=== PATIENT | female | born 2000 ===

== ENCOUNTER 2024-04-17 07:35 | Inpatient (IN) ==
--- OUTSIDE RECORDS SUMMARY | 2024-04-17 07:40 | External Medical Summary | Summary of Care ---
Author Name Unknown Organization [facility] Address [address] [facility] [place] [address] Phone [phone] Care Team Providers Care Watershed Engineer Name Role Phone Unavailable Primary Care Provider Unavailabl e Reason for Visit * Reason Comments Return Visit Encounter Details Date Type Department Care Team (Late st Contact Info) Description 03/26/2024 11:45 AM EDT Office Visit Gynecology/Obstetric s [address] [place] [address] Nory Araya CRNP [address] [place] [address] Encounter for supervision of normal first in third trimester*; Adjustment disorder with mixed anxiety and depressed mood; Rh negative status during in third trimester Allergies Active Allergy Reactions Criticality Noted Date Comments Amoxicillin 01/26/2024 documented as of this encounter (statuses as of 03/26/2024) Medications Medication Sig Dispensed Refills Start Date End Date Status 28-0.8 MG Oral Tablet Take by mouth. Active Sertraline HCl 50 MG Oral Tablet (Zoloft) Take 1 Tablet by mouth in the morning. Active documented as of this encounter (statuses as of 03/26/2024) Active Problems Problem Noted Date Diagnosed Date Rh negative status during 02/21/2024 Overview: O- bloodtype. NOB labs drawn at 32w. NEEDS RHOGAM Encounter for supervision of normal first in third trimester 02/13/2024 Overview: Transfer from [facility] at 31w. Labs not available for review, ordered 02/13/2024 Adjustment disorder with mixed anxiety and depre ssed mood 02/13/2024 Overview: On zoloft, feeling well Estimated Date of Delivery Comme nts Yes 04/16/2024 Based on Ultraso und documented as of this encounter (statuses as of 03/26/2024) Social History Tobacco Use Types Packs/Day Years Used Date Smoking Tobacco: Never Smokeless Tobacco: Never Alcohol Use Standard Drinks/Week Comments Not Currently 0 (1 standard drink = 0.6 oz pur e alcohol) Hunger Vital Sign Answer Date Recorded Within the past 12 months, y ou worried that your food would run out before you got the money to buy more. Never true 01/24/20 24 Within the past 12 months, t he food you bought just didn't last and you didn't have money to get more. Never true 01/24/2024 Childcare Answer Date Recorded Do you feel overwhelmed with taking care of a child, family member or friend? No 01/24/2024 Does your family need help f inding childcare? (Household - for ages 0-17 years) Not on file 01/24/2024 Clothing Answer Date Recorded Have you been unable to get clothing when it was really needed? No 01/24/2024 Is your family able to get c lothes or diapers when needed? (Household - for ages 0-17 years) Not on file 01/24/2024 Personal Safety Answer Date Recorded Do you feel unsafe or have concerns for your saf ety? No 01/24/2024 Do you have concerns for you r family's safety? (Household - for ages 0-17 years) Not on file 01/24/2024 Utilities Answer Date Recorded Do you have trouble paying y our heating, water, or electric bill? No 01/24/2024 Is your family able to pay t he heat, water, or electric bill? (Household - for ages 0-17 years) Not on file 01/24/2024 Does your family have access to good internet? (Household - for ages 0-17 years) Not on file 01/24/2024 Employment Status Answer Date Recorded Are you unemployed or without regular income? No 01/24/2024 Does the household have a re gular source of income? (Household - for ages 0-17 years) Not on file 01/24/2024 Social Connections Answer Date Recorded How often do you feel lonely or isolated from those around you? Sometimes 01/24/2024 Financial Resource Strain Answer Date R ecorded Do you have any trouble payi ng for your medications, or do you think you might in the future? No 01/24/2024 Does your family have troubl e paying for medicine? (Household - for ages 0-17 years) Not on file 01/24/2024 Transportation Needs Answer Date Record ed READ ONLY Do you have troubl e getting a ride to medical visits or work? Never True 01/24/2024 Does your family have a hard time getting a ride to doctors visits? (Household - for ages 0-17 years) Not on file 01/24/2024 Has lack of transportation k ept you from medical appointments, meetings, work, or from getting things needed for daily living? Check all that apply. (Adult - for ages 18 years and over) Not on file 01/24/2024 Do you (or your family) have trouble finding or paying for a ride (transportation)? (Household - for ages 0-17 years) Not on file 01/24/2024 Housing Stability Answer Date Recorded Do you currently live in a s helter or have no steady place to sleep at night? No 01/24/2024 READ ONLY Do you think you a re at risk of becoming homeless? No 01/24/2024 Does your family worry about paying for your home or becoming homeless? (Household - for ages 0-17 years) Not on file 0 01/24/2024 Are you homeless or worried that you might be in the future? (Adult - for ages 18 years and over) Not on file Are you (or your family) deb eless or worried that you might be in the future? (Household - for ages 0-17 years) Not on file Food Insecurity Answer Date Recorded Do you need food for this week? No 01/24/2024 Are you able to get enough f ood for your family? (Household - for ages 0-17 years) Not on file 01/24/2024 Does your family need food t his week? (Household - for ages 0-17 years) Not on file 01/24/2024 Do you always have enough fo od for your family? (Household - for ages 0-17 years) Not on file 01/24/2024 Estimated Date of Delivery Comme nts Yes 04/16/2024 Based on Ultraso und Sex and Gender Information Value Date Recorded Sex Assigned at Female 01/24/2024 2:56 PM EDT Gender Identity Female 01/24/2024 2:56 PM EDT Sexual Orientation Straight 01/24/2024 2: 56 PM EDT Job Start Date Occupation Industry Not on file Not on file Not on file documented as of this encounter Last Filed Vital Signs Vital Sign Reading Time Taken Comments Blood Pressure 104/66 03/26/2024 11:49 AM EDT Pulse - - Temperature - - Respiratory Rate - - Oxygen Saturation - - Inhaled Oxygen Concentration - - Weight 87.1 kg (192 lb) 03/26/2024 11:49 AM EDT Height - - Body Mass Index 36.28 03/19/2024 9:50 AM EDT documented in this encounter Progress Notes * Nory Araya CRNP - 03/26/2024 11:53 AM EDT 37w Feeling ready to be done being . She denies any questions or concerns. Reports her mood is good, has appt tomorrow with psychiatrist. Denies need for intervention at thistime. Baby is active. Denies contractions, bleeding, LOF. CHINTAN Kebede * Norma Richards LPN - 03/26/2024 11:50 AM EDT 37w0d Denies vaginal bleeding/rom + movement No new concerns documented in this encounter Plan of Treatment Upcoming Encounters Date Type Department Care Team (Late st Contact Info) Description 04/02/2024 11:30 AM EDT Office Visit Gynecology/Obstetrics [address] [place] [address] Nory Araya CRNP [address] [place] [address] Health Maintenance Due Date Last Done Comments Depression Screening 2010 HPV (Gardasil) Vaccine (1 - 3-dose series) 2013 DTaP,Tdap,and Td Vaccines (1 - Tdap) 2017 Hepatitis B Vaccine (1 of 3 - 19+ 3-dose series) 2017 Pap Smear 2019 COVID-19 Vaccine ( - 2022-2 4 season) 2023 Influenza Vaccine (FLU shot) (#1) 2024 MENINGOCOCCAL (MENACTRA/MENVEO) Aged Out No longer eligible based on patient's age to complete this topic Pneumococcal Vaccine: Pediat rics (0 to 5 Years) and At-Risk Patients (6 to 64 Years) Aged Out No longer eligible b ased on patient's age to complete this topic documented as of this encounter Medical Devices Not on filedocumented as of this encounter Visit Diagnoses Diagnosis Encounter for supervision of normal first in third trimester- Primary Supervision of normal first Adjustment disorder with mixed anxiety and depressed mood Rh negative status during in third trimester documented in this encounter
--- OUTSIDE RECORDS SUMMARY | 2024-04-17 07:40 | External Medical Summary | Summary of Care ---
Author Name Unknown Organization [facility] Address [address] [facility] [place] [address] Phone [phone] Care Team Providers Care Machinist Job Setter Name Role Phone Unavailable Primary Care Provider Unavailabl e Reason for Visit * Reason Comments Return Visit Encounter Details Date Type Department Care Team (Late st Contact Info) Description 03/19/2024 9:45 AM EDT Office Visit Gynecology/Obstetric s [address] [place] [address] Nory Araya CRNP [address] [place] [address] Encounter for supervision of normal first in third trimester*; Adjustment disorder with mixed anxiety and depressed mood; Rh negative status during in third trimester Allergies Active Allergy Reactions Criticality Noted Date Comments Amoxicillin 01/26/2024 documented as of this encounter (statuses as of 03/19/2024) Medications Medication Sig Dispensed Refills Start Date End Date Status 28-0.8 MG Oral Tablet Take by mouth. Active Sertraline HCl 50 MG Oral Tablet (Zoloft) Take 1 Tablet by mouth in the morning. Active documented as of this encounter (statuses as of 03/19/2024) Active Problems Problem Noted Date Diagnosed Date Rh negative status during 02/21/2024 Overview: O- bloodtype. NOB labs drawn at 32w. NEEDS RHOGAM Encounter for supervision of normal first in third trimester 02/13/2024 Overview: Transfer from [facility] at 31w. Labs not available for review, ordered 02/13/2024 Adjustment disorder with mixed anxiety and depre ssed mood 02/13/2024 Overview: On zoloft, feeling well Estimated Date of Delivery Comme nts Yes 04/16/2024 Based on Ultraso und documented as of this encounter (statuses as of 03/19/2024) Social History Tobacco Use Types Packs/Day Years [...] Sign Reading Time Taken Comments Blood Pressure 122/70 03/19/2024 9:50 AM EDT Pulse - - Temperature - - Respiratory Rate - - Oxygen Saturation - - Inhaled Oxygen Concentration - - Weight 85.7 kg (189 lb) 03/19/2024 9:50 AM EDT Height 154.9 cm (5' 1") 03/19/2024 9:50 AM EDT Body Mass Index 35.71 03/19/2024 9:50 AM EDT documented in this encounter Progress Notes * Nory Araya CRNP - 03/19/2024 11:27 AM EDT 36w Pt sent myG messages last week with feelings of anxiety. Crying a lot, struggling to leave her house. Had stopped her Zoloft d/t nausea from it, at the advice of her psychiatrist. She states today that she is starting to feel better. She has an appt next week again, but states they are hopeful to not start on any other meds until . We discussed concerns of PPD/anxiety, and that most meds are safe in . She reports that baby is active. Denies bleeding, contractions, LOF. Uncertain lie of baby, will obtain u/s for position check. CHINTAN Kebede * Anita Jewell LPN - 03/19/2024 9:50 AM EDT 36w0d Is following with talkiatry and was not prescribed anything doing better with moods Needs GBS today documented in this encounter Plan of Treatment Upcoming Encounters Date Type Department Care Team (Late st Contact Info) Description 03/26/2024 10:30 AM EDT Imaging Radiology [address] [place] [address] 03/26/2024 11:45 AM EDT Office Visit Gynecology/Obstetrics [address] [place] [address] Nory Araya CRNP [address] [place] [address] Pending Results Name Type Priority Associated Diagnoses Date /Time GROUP B STREP CULTURE/PCR Lab Routine Encounter for supervision of normal first in third trimester 03/19/2024 10:16 AM EDT Scheduled Orders Name Type Priority Associated Diagnoses Orde r Schedule GROUP B STREP CULTURE/PCR Lab Routine Encounter for supervision of normal first in third trimester Expected: 03/19/2024, Expires: 03/19/2025 US PREG LIMITED 1 OR MORE FETUSES Medical Imaging Routine Encounter for supervision of normal first in third trimester Expected: 03/19/2024 (Approximate), Expires: 04/19/2025 Health Maintenance Due Date Last Done Comments [...]
--- OUTSIDE RECORDS SUMMARY | 2024-04-17 07:40 | External Medical Summary | Summary of Care ---
Author Name Unknown Organization [facility] Address [address] [facility] [place] [address] Phone [phone] Care Team Providers Care Waist Cutter Name Role Phone Unavailable Primary Care Provider Unavailabl e Reason for Visit * Reason Comments Return Visit Encounter Details Date Type Department Care Team (Late st Contact Info) Description 04/02/2024 11:30 AM EDT Office Visit Gynecology/Obstetric s [address] [place] [address] Nory Araya CRNP [address] [place] [address] Encounter for supervision of normal first in third trimester*; Adjustment disorder with mixed anxiety and depressed mood; Rh negative status during in third trimester Allergies Active Allergy Reactions Criticality Noted Date Comments Amoxicillin 01/26/2024 documented as of this encounter (statuses as of 04/02/2024) Medications Medication Sig Dispensed Refills Start Date End Date Status 28-0.8 MG Oral Tablet Take by mouth. Active Sertraline HCl 50 MG Oral Tablet (Zoloft) Take 1 Tablet by mouth in the morning. Active Promethazine HCl 25 MG Oral Tablet (Phenergan) Take 1 Tablet by mouth every 6 hours as needed for Nausea. 30 Tablet 1 04/02/2024 Active documented as of this encounter (statuses as of 04/02/2024) Active Problems Problem Noted Date Diagnosed Date Rh negative status during 02/21/2024 Overview: O- bloodtype. NOB labs drawn at 32w. NEEDS RHOGAM Encounter for supervision of normal first in third trimester 02/13/2024 Overview: Transfer from [facility] at 31w. Labs not available for review, ordered 02/13/2024 Adjustment disorder with mixed anxiety and depre ssed mood 02/13/2024 Overview: On zoloft, feeling well Estimated Date of Delivery Comme nts Yes 04/16/2024 Based on Ultraso und documented as of this encounter (statuses as of 04/02/2024) Social History Tobacco Use Types Packs/Day Years [...] Sign Reading Time Taken Comments Blood Pressure 116/64 04/02/2024 11:31 AM EDT Pulse - - Temperature - - Respiratory Rate - - Oxygen Saturation - - Inhaled Oxygen Concentration - - Weight 88.5 kg (195 lb) 04/02/2024 11:31 AM EDT Height 154.9 cm (5' 1") 04/02/2024 11:31 AM EDT Body Mass Index 36.84 04/02/2024 11:31 AM EDT documented in this encounter Progress Notes * Nory Araya CRNP - 04/02/2024 11:49 AM EDT 38w Met with psych and was restarted on Zoloft, despite this causing nausea. Zofran, Unisom, B6 doesn'thelp. Rx for phenergan sent to pharmacy. No other concerns today. Baby is active. No contractions, bleeding, LOF. IOL scheduled for 04/17/24. CHINTAN Kebede * Anita Jewell LPN - 04/02/2024 11:33 AM EDT 38w0d Back on zoloft still feeling nausea with this Last time in zoloft, zofran did not help documented in this encounter Nursing Notes * Anita Jewell LPN - 04/02/2024 11:32 AM EDT 38w0d documented in this encounter Plan of Treatment Upcoming Encounters Date Type Department Care Team (Late st Contact Info) Description 04/03/2024 10:00 AM EDT Office Visit Gynecology/Obstetrics [facility] [address] [place] [address] Nory Araya CRNP [address] [place] [address] Health Maintenance Due Date Last Done Comments [...]
--- OUTSIDE RECORDS SUMMARY | 2024-04-17 07:40 | External Medical Summary | Summary of Care ---
Author Name Unknown Organization [facility] Address [address] [facility] [place] [address] Phone [phone] Care Team Providers Care Photogrammetrist Name Role Phone Unavailable Primary Care Provider Unavailabl e Reason for Visit * Reason Comments Return Visit Encounter Details Date Type Department Care Team (Late st Contact Info) Description 04/09/2024 1:30 PM EDT Office Visit Gynecology/Obstetric s Osman Mustafa [address] [place] [address] Nory Araya CRNP [address] [place] [address] Encounter for supervision of normal first in third trimester*; Adjustment disorder with mixed anxiety and depressed mood; Rh negative status during in third trimester Allergies Active Allergy Reactions Criticality Noted Date Comments Amoxicillin 01/26/2024 documented as of this encounter (statuses as of 04/09/2024) Medications Medication Sig Dispensed Refills Start Date [...] as of this encounter (statuses as of 04/09/2024) Active Problems Problem Noted Date Diagnosed Date Rh negative status during 02/21/2024 Overview: O- bloodtype. NOB labs drawn at 32w. NEEDS RHOGAM Encounter for supervision of normal first in third trimester 02/13/2024 Overview: Transfer from [facility] at 31w. Labs not available for review, ordered 02/13/2024 Adjustment disorder with mixed anxiety and depre ssed mood 02/13/2024 Overview: On zoloft, feeling well Estimated Date of Delivery Comme nts Yes 04/16/2024 Based on Ultraso und documented as of this encounter (statuses as of 04/09/2024) Social History Tobacco Use Types Packs/Day Years [...] Sign Reading Time Taken Comments Blood Pressure 122/74 04/09/2024 1:06 PM EDT Pulse - - Temperature - - Respiratory Rate - - Oxygen Saturation - - Inhaled Oxygen Concentration - - Weight 89.4 kg (197 lb) 04/09/2024 1:06 PM EDT Height 154.9 cm (5' 1") 04/09/2024 1:06 PM EDT Body Mass Index 37.22 04/09/2024 1:06 PM EDT documented in this encounter Progress Notes * Nory Araya CRNP - 04/09/2024 1:40 PM EDT 39w Anxious about delivery, specifically about IV insertion. She has no other concerns. [place] score of 14, but reports mood as stable. Taking zofran as directed. Taking phenergan for nausea, which is helping very well. Hasn't vomited in a week. Baby is very active. Denies contractions, bleeding, LOF. Has IOL 04/17. CHINTAN Kebede documented in this encounter Nursing Notes * Aaliyah Jay LPN - 04/09/2024 1:17 PM EDT 39w0d Denies concerns IOL scheduled 04/17 documented in this encounter Plan of Treatment Health Maintenance Due Date Last Done Comments [...]
--- OUTSIDE RECORDS SUMMARY | 2024-04-17 07:40 | External Medical Summary | Summary of Care ---
Author Name Unknown Organization [facility] Address [address] [facility] [place] [address] Phone [phone] Care Team Providers Care Photoresist Contact Printer Name Role Phone Unavailable Primary Care Provider Unavailabl e Reason for Visit * Reason Comments Blood Pressure Check Encounter Details Date Type Department Care Team (Late st Contact Info) Description 04/10/2024 10:00 AM EDT Nurse Only Gynecology/Obstetrics [facility] [address] [facility] [place] [address] Gw, Nurse Obgyn Injection [address] [facility] [place] [address] Blood Pressure Check Allergies Active Allergy Reactions Criticality Noted Date Comments Amoxicillin 01/26/2024 documented as of this encounter (statuses as of 04/10/2024) Medications Medication Sig Dispensed Refills Start Date [...] as of this encounter (statuses as of 04/10/2024) Active Problems Problem Noted Date Diagnosed Date Rh negative status during 02/21/2024 Overview: O- bloodtype. NOB labs drawn at 32w. NEEDS RHOGAM Encounter for supervision of normal first in third trimester 02/13/2024 Overview: Transfer from [facility] at 31w. Labs not available for review, ordered 02/13/2024 Adjustment disorder with mixed anxiety and depre ssed mood 02/13/2024 Overview: On zoloft, feeling well Estimated Date of Delivery Comme nts Yes 04/16/2024 Based on Ultraso und documented as of this encounter (statuses as of 04/10/2024) Social History Tobacco Use Types Packs/Day Years [...] money to get more. Never true 01/24/2024 [place] Depression Scale Answer Date Recorded [place] Depression Scale Total 14 04/09/2024 The thought of harming myself has occurred to me . Never 04/09/2024 Childcare Answer Date Recorded Do you feel [...] Sign Reading Time Taken Comments Blood Pressure 124/78 04/10/2024 10:40 AM EDT Pulse - - Temperature - - Respiratory Rate - - Oxygen Saturation - - Inhaled Oxygen Concentration - - Weight - - Height - - Body Mass Index - - documented in this encounter Nursing Notes * Anita Jewell LPN - 04/10/2024 10:33 AM EDT Pt came in for a bp check and urine dip today due to LE swelling Pt denies any VB, LOF ctxs and baby is moving well. Pt said she has had a STAPLES for 1 week and tylenol doesn't help much. PT states she drinks maybe 60-80 ozs a day of liquid iv. Pt urine is dark in color had trace protein and ketones. Pt BP was 124/78 I let pt know per Nory pt is dehydrated and she needs to increase her water intake to close to 120 ozs. Pt said she can't due that due to the medications she takes and it makes her feel nauseous. I told pt she needs to try and drink more water to help with the swelling and her STAPLES's. I let pt know to call us if STAPLES continue or become worse along with any new symptoms. Pt verbalized understanding. documented in this encounter Plan of Treatment Health Maintenance Due Date Last Done Comments Depression Screening 2010 HPV (Gardasil) Vaccine (1 - 3-dose series) 2013 DTap/Tdap Vaccines (1 - Tdap) 2017 Hepatitis B [...] and depressed mood Rh negative status during Rhesus isoimmunization unspecified as to episode of care in documented in this encounter
--- OUTSIDE RECORDS SUMMARY | 2024-04-17 07:40 | External Medical Summary | Summary of Care ---
Author Name Unknown Organization [facility] Address [address] [place] [address] Phone [phone] Care Team Providers Care Motion Picture Actor Name Role Phone Unavailable Primary Care Provider Unavailabl e Reason for Visit * Reason Onset Date Comments MyCode Nonconsent - Not interested at this time 03/19/2024 Encounter Details Date Type Department Care Team (Late st Contact Info) Description 03/19/2024 Orders Only Outcomes Research Department [address] [place] [address] Irish Cao CHRA MyCode Nonconsent Documentation Allergies Active Allergy Reactions Criticality Noted Date [...] in third trimester 02/13/2024 Overview: Transfer from [facility] at 31w. Labs not available for [...] on file documented as of this encounter Progress Notes * Irish Cao CHRA - 03/19/2024 9:31 AM EDT [place] Nonconsent Documentation Bia Lima was approached in the clinic regarding participation in the MyCode Project and did not consent. documented in this encounter Plan of Treatment [...]
--- OUTSIDE RECORDS SUMMARY | 2024-04-17 07:41 | External Medical Summary | Summary of Care ---
Author Name Unknown Organization [facility] Address [address] [facility] [place] [address] Phone [phone] Care Team Providers Care Hourly Sign Language Interpreter Name Role Phone Unavailable Primary Care Provider Unavailabl e Reason for Visit * Reason Comments New Visit Encounter Details Date Type Department Care Team (Late st Contact Info) Description 02/13/2024 3:00 PM EDT Office Visit Gynecology/Obstetric s [address] [place] [address] Nory Araya CRNP [address] [place] [address] Encounter for supervision of normal first in third trimester*; Uterine size date discrepancy Allergies Active Allergy Reactions Criticality Noted Date Comments Amoxicillin 01/26/2024 documented as of this encounter (statuses as of 02/13/2024) Medications Medication Sig Dispensed Refills Start Date End Date Status 28-0.8 MG Oral Tablet Take by mouth. Active Sertraline HCl 50 MG Oral Tablet (Zoloft) Take 1 Tablet by mouth in the morning. Active documented as of this encounter (statuses as of 02/13/2024) Active Problems Problem Noted Date Diagnosed Date Encounter for supervision of normal first in third trimester 02/13/2024 Overview: Transfer from [facility] at 31w. Labs not available for review, ordered 02/13/2024 Adjustment disorder with mixed anxiety and depre ssed mood 02/13/2024 Overview: On zoloft, feeling well Estimated Date of Delivery Comme nts Yes 04/16/2024 Based on Ultraso und documented as of this encounter (statuses as of 02/13/2024) Social History Tobacco Use Types Packs/Day Years [...] Sign Reading Time Taken Comments Blood Pressure 114/68 02/13/2024 2:50 PM EDT Pulse - - Temperature - - Respiratory Rate - - Oxygen Saturation - - Inhaled Oxygen Concentration - - Weight 85.7 kg (189 lb) 02/13/2024 2:50 PM EDT Height 154.9 cm (5' 1") 02/13/2024 2:50 PM EDT Body Mass Index 35.71 02/13/2024 2:50 PM EDT documented in this encounter Progress Notes * Nory Araya CRNP - 02/13/2024 3:15 PM EDT HPI: Bia Lima is a 24 year old year old female here for NOB visit. 31w0d . EDC 04/16/24. Transferring care from Dr. Laird's office. No labs seen in chart. Reviewed PMH, PSH, social hx, and family hx with pt. History of anxiety and depression, on zoloft. Feeling well on this. Had been on Lamictal prior, feels great on Zoloft. Discussed genetic screening tests, did not do any. Taking PNV. Past Medical History: Diagnosis Date Anxiety Depression Past Surgical History: Procedure Laterality Date MI TONSILLECTOMY PRIMARY/SECONDARY LESS THAN AGE 10 Current outpatient prescriptions Current Outpatient Medications Medication Sig Dispense Refill 28-0.8 MG Oral Tablet Take by mouth. Sertraline HCl 50 MG Oral Tablet (Zoloft) Take 1 Tablet by mouth in the morning. No current facility-administered medications for this visit. 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 (Adult - for ages 18 years and over): No Does your family have trouble paying for medicine? (Household - for ages 0-17 years): Not on file Food Insecurity: No Food Insecurity (01/24/2024) Food Insecurity Do you need food for this week? (Adult - for ages 18 years and over): No Are you able to get enough food for your family? (Household - for ages 0-17 years): Not on file Does your family need food this week? (Household - for ages 0-17 years): Not on file Do you always have enough food for your family? (Household - for ages 0-17 years): Not on file Transportation Needs: No Transportation Needs (01/24/2024) Transportation Needs Do you have trouble getting a ride to medical visits or work? (Adult - for ages 18 years and over):Never True Does your family have a hard time getting a ride to doctors visits? (Household - for ages 0-17 years): Not on file Has lack of transportation kept you from medical appointments, meetings, work, or from getting things needed for daily living? Check all that apply. (Adult - for ages 18 years and over): Not on file Do you (or your family) have trouble finding or paying for a ride (transportation)? (Household - for ages 0-17 years): Not on file Social Connections: Socially Integrated (01/24/2024) Social Connections How often do you feel lonely or isolated from those around you? (Adult - for ages 18 years and over): Sometimes Housing Stability: Low Risk (01/24/2024) Housing Stability Do you currently live in a jail or have no steady place to sleep at night? (Adult - for ages 18 years and over): No Do you think you are at risk of becoming homeless? (Adult - for ages 18 years and over): No Does your family worry about paying for your home or becoming homeless? (Household - for ages 0-17 years): Not on file Are you homeless or worried that you might be in the future? (Adult - for ages 18 years and over): Not on file Are you (or your family) homeless or worried that you might be in the future? (Household - for ages0-17 years): Not on file Family History No family history on file. Obstetric History OB History Para Term AB Living 1 SAB IAB Ectopic Multiple Live Births # Outcome Date GA Lbr Elbert/2nd Weight Sex Type Anes PTL Lv 1 Current PHYSICAL EXAM: See physical IMPRESSION: Encounter for supervision of normal first in third trimester (Primary) - 50-G GESTATIONAL GLUCOSE, 1 HOUR; Future; Expected date: 02/13/2024 - CBC WITH WBC DIFFERENTIAL AND ANEMIA REFLEX WORKUP; Future; Expected date: 02/13/2024 - SYPHILIS ANTIBODY SCREEN WITH REFLEX TO RPR; Future; Expected date: 02/13/2024 - TYPE AND SCREEN; Future; Expected date: 02/13/2024 - RUBELLA IGG ANTIBODY; Future; Expected date: 02/13/2024 - HEPATITIS B SURFACE ANTIGEN; Future; Expected date: 02/13/2024 - HIV ANTIGEN & ANTIBODY SCREEN W/ CONFIRMATION; Future; Expected date: 02/13/2024 - HEPATITIS C ANTIBODY SCREEN WITH PROGRESSION TO HEPATITIS C RNA QUANTITATIVE; Future; Expected date: 02/13/2024 Uterine size date discrepancy - US PREG FOLLOW-UP EACH FETUS; Future; Expected date: 02/13/2024 Follow Up: Return in about 2 weeks (around 02/27/2024) for angelique. | For: angelique | Check-out note: Needs Glucola JILL Schedule growth u/s. Can be with next visit, or sooner CHINTAN Kebede * Anita Jewell LPN - 02/13/2024 2:50 PM EDT 31w0d documented in this encounter Plan of Treatment Upcoming Encounters Date Type Department Care Team (Late st Contact Info) Description 02/27/2024 9:45 AM EDT Office Visit Gynecology/Obstetrics [address] [place] [address] Nory Araya CRNP [address] [place] [address] Scheduled Orders Name Type Priority Associated Diagnoses Orde r Schedule 50-G GESTATIONAL GLUCOSE, 1 HOUR Lab Routine Encounter for supervision of normal first in third trimester Expected: 02/13/2024, Expires: 2025 CBC WITH WBC DIFFERENTIAL AND ANEMIA REFLEX WORKUP Lab Routine Encounter for supervision of normal first in third trimester Expected: 02/13/2024, Expires: 2025 SYPHILIS ANTIBODY SCREEN WITH REFLEX TO RPR Lab Routine Encounter for supervision of normal first in third trimester Expected: 02/13/2024, Expires: 2025 TYPE AND SCREEN Lab Routine Encounter for supervision of normal first in third trimester Expected: 02/13/2024 (Approximate), Expires: 03/15/2025 RUBELLA IGG ANTIBODY Lab Routine Encounter for supervision of normal first in third trimester Expected: 02/13/2024 (Approximate), Expires: 2025 HEPATITIS B SURFACE ANTIGEN Lab Routine Encounter for supervision of normal first in third trimester Expected: 02/13/2024 (Approximate), Expires: 2025 HIV ANTIGEN & ANTIBODY SCREEN W/ CONFIRMATION Lab Routine Encounter for supervision of normal first in third trimester Expected: 02/13/2024 (Approximate), Expires: 2025 HEPATITIS C ANTIBODY SCREEN WITH PROGRESSION TO HEPATITIS C RNA QUANTITATIVE Lab Routine Encounter for supervision of normal first in third trimester Expected: 02/13/2024 (Approximate), Expires: 2025 US PREG FOLLOW-UP EACH FETUS Medical Imaging Routine Uterine size date discrepancy Expected: 02/13/2024 (Approximate), Expires: 03/15/2025 Health Maintenance Due Date Last Done Comments Depression Screening 2010 GARDASIL-HPV IMMUNIZATION SE GERARDO (1 - 3-dose series) 2013 HIV Screening 2013 Hepatitis C Screening 02/13/2016 DTaP,Tdap,and Td Vaccines (1 - Tdap) 2017 Hepatitis B (1 of 3 - 19+ 3- dose series) 2017 Pap Smear 2019 COVID-19 Vaccine (2022-2 4 season) 2023 Influenza Vaccine (FLU shot) [...] third trimester- Primary Supervision of normal first Uterine size date discrepancy Uterine size date discrepancy, antepartum condition or complication documented in this encounter
--- OUTSIDE RECORDS SUMMARY | 2024-04-17 07:41 | External Medical Summary ---
Author Name Unknown Address Unknown Organization [id number]:LABORATORY [facility] [place] [facility] - [address] [place] [address] Laboratory Report Ordering Provider Test Date Status ANDREE NUNO 02/20/2024 11:06:19 Final Observation Date Value Abnormality Reference (Units ) Status ABO 02/20/2024 11:06:19 O Final RH 02/20/2024 11:06:19 Negative Final RED BLOOD CELL ANTIBODY SCREEN 02/20/2024 11:06:19 Negative Final SPECIMEN EXPIRATION DATE 02/20/2024 11:06:19 02/23/2024 23:59 Final Performing Location LABORATORY [facility] [place] [facility] - [address] [place] [address]
--- OUTSIDE RECORDS SUMMARY | 2024-04-17 07:41 | External Medical Summary ---
Author Name Unknown Address Unknown Organization [id number]:LABORATORY [facility] [place] - [address] [place] [place] [address] Laboratory Report Ordering Provider Test Date Status ANDREE NUNO 02/20/2024 11:06:19 Final Observation Date Value Abnormality Reference (Units ) Status Hep B surface Ag 02/20/2024 11:06:19 Negative Neg ative Final Performing Location LABORATORY [facility] - [address] [place] [address]
--- OUTSIDE RECORDS SUMMARY | 2024-04-17 07:41 | External Medical Summary ---
Author Name Unknown Address Unknown Organization [id number]:LABORATORY [place] [address] [place] [address] Laboratory Report Ordering Provider Test Date Status ANDREE NUNO 03/19/2024 10:16:32 Final Observation Date Value Abnormality Reference (Units ) Status Streptococcus agalactiae DNA [Presence] in Specimen by SKYLAR with probe detection 03/19/2024 10:16:32 Negative Negative Final No Group B Streptococcus det ected by culture-enhanced PCR (amplified probe). GBS GBSCT - [facility] 03/19/2024 10:16:32 0.0 Final GBS SPCCT - [facility] 03/19/2024 10:16:32 30.7 Final Performing Location LABORATORY [facility] [place] - [address] [place] [address]
--- OUTSIDE RECORDS SUMMARY | 2024-04-17 07:41 | External Medical Summary ---
Author Name Unknown Address Unknown Organization [id number]:[facility]ORY [facility] [place] [address] [place] [address] Laboratory Report Ordering Provider Test Date Status ANDREE NUNO 02/20/2024 11:06:19 Final Observation Date Value Abnormality Reference (Units ) Status Treponema pallidum Ab [Presence] in Serum by Immunoassay 02/20/2024 11:06:19 Nonreactive Nonreactive Final No serologic evidence of syp hilis. No additional testing clinicially indicated at this time. Consider repeat testing in 2-4 weeks if acute or primary syphilis is suspected. Performing Location LABORATORY [facility] [place] - [address] [place] [address]
--- OUTSIDE RECORDS SUMMARY | 2024-04-17 07:41 | External Medical Summary | Summary of Care ---
Author Name Unknown Organization [facility] Address [address] [place] [address] Phone [phone] Care Team Providers Care Outdoor Education Teacher Name Role Phone Unavailable Primary Care Provider Unavailabl e Reason for Visit * Reason Comments New Visit Encounter Details Date Type Department Care Team (Late st Contact Info) Description 01/26/2024 2:00 PM EDT Nurse Only Gynecology/Obstetrics [facility] [address] [facility] [place] [address] Gw, Nurse Pack Train Driver [facility] [address] [facility] [place] [address] New Visit Allergies Active Allergy Reactions Criticality Noted Date Comments Amoxicillin 01/26/2024 documented as of this encounter (statuses as of 01/26/2024) Medications Medication Sig Dispensed Refills Start Date End Date Status 28-0.8 MG Oral Tablet Take by mouth. Active Sertraline HCl 50 MG Oral Tablet (Zoloft) Take 1 Tablet by mouth in the morning. Active documented as of this encounter (statuses as of 01/26/2024) Social History Tobacco Use Types Packs/Day Years Used Date Smoking Tobacco: Never Smokeless Tobacco: Never Tobacco Cessation:Counseling Given: Not Answered Alcohol Use Standard Drinks/Week Comments Not Currently [...] money to get more. Never true 01/24/2024 Estimated Date of Delivery Comme nts [...] Sign Reading Time Taken Comments Blood Pressure - - Pulse - - Temperature - - Respiratory Rate - - Oxygen Saturation - - Inhaled Oxygen Concentration - - Weight 83.5 kg (184 lb) 01/26/2024 1:50 PM EDT Height 154.9 cm (5' 1") 01/26/2024 1:50 PM EDT Body Mass Index 34.77 01/26/2024 1:50 PM EDT documented in this encounter Nursing Notes * Judy Brambila RN - 01/26/2024 1:50 PM EDT Patient called for NOB intake Transfer From Dr. Laird LMP 07/04/2023 SAUMYA 04/16/2024 No pain or bleeding + nausea , taking zofran PRN Denies STAPLES or blurry vision PAP 04/[address] Laird notes Anatomy scan WNL Triage number given Education given Judy Brambila RN documented in this encounter Plan of Treatment Upcoming Encounters Date Type Department Care Team (Late st Contact Info) Description 02/02/2024 3:30 PM EDT Office Visit Gynecology/Obstetrics [facility] [address] [facility] [place] [address] Robyn Can PA-C [address] [place] [phone] Health Maintenance Due Date Last Done Comments Depression Screening 2010 GARDASIL-HPV IMMUNIZATION SE [place]ARDO (1 - 3-dose series) 2013 HIV Screening 2013 Hepatitis C Screening 02/13/2016 DTaP,Tdap,and Td Vaccines (1 - Tdap) 2017 Hepatitis B (1 of 3 - 19+ 3- dose series) 2017 Pap Smear 2019 COVID-19 Vaccine ( - 2022-2 4 season) 2023 Influenza Vaccine (FLU shot) (Season Ended) 2024 MENINGOCOCCAL (MENACTRA/MENVEO) Aged Out No longer [...]
--- OUTSIDE RECORDS SUMMARY | 2024-04-17 07:41 | External Medical Summary | Summary of Care ---
Author Name Unknown Organization [facility] Address [address] [facility] [place] [address] Phone [phone] Care Team Providers Care Building Guard Deputy Sheriff Name Role Phone Unavailable Primary Care Provider Unavailabl e Reason for Visit * Reason Comments Outpatient Testing Encounter Details Date Type Department Care Team (Late st Contact Info) Description 02/20/2024 10:30 AM EDT Laboratory Laboratory [address] [place] [phone] [place] [address] Encounter for supervision of normal first in third trimester Allergies Active Allergy Reactions Criticality Noted Date Comments Amoxicillin 01/26/2024 documented as of this encounter (statuses as of 02/20/2024) Medications Medication Sig Dispensed Refills Start Date End Date Status 28-0.8 MG Oral Tablet Take by mouth. Active Sertraline HCl 50 MG Oral Tablet (Zoloft) Take 1 Tablet by mouth in the morning. Active documented as of this encounter (statuses as of 02/20/2024) Active Problems Problem Noted Date Diagnosed Date Encounter for supervision of normal first in third trimester 02/13/2024 Overview: Transfer from [facility] at 31w. Labs not available for review, ordered 02/13/2024 Adjustment disorder with mixed anxiety and depre ssed mood 02/13/2024 Overview: On zoloft, feeling well Estimated Date of Delivery Comme nts Yes 04/16/2024 Based on Ultraso und documented as of this encounter (statuses as of 02/20/2024) Social History Tobacco Use Types Packs/Day Years [...] on file documented as of this encounter Plan of Treatment Upcoming Encounters Date Type Department Care Team (Late st Contact Info) Description 02/27/2024 9:45 AM EDT Office Visit Gynecology/Obstetrics [address] [place] [address] Nory Araya CRNP [address] [place] [address] Pending Results Name Type Priority Associated Diagnoses Date /Time 50-G GESTATIONAL GLUCOSE, 1 HOUR Lab Routine Encounter for supervision of normal first in third trimester 02/20/2024 11:06 AM EDT CBC WITH WBC DIFFERENTIAL AND ANEMIA REFLEX WORKUP Lab Routine Encounter for supervision of normal first in third trimester 02/20/2024 11:06 AM EDT SYPHILIS ANTIBODY SCREEN WITH REFLEX TO RPR Lab Routine Encounter for supervision of normal first in third trimester 02/20/2024 11:06 AM EDT TYPE AND SCREEN Lab Routine Encounter for supervision of normal first in third trimester 02/20/2024 11:06 AM EDT RUBELLA IGG ANTIBODY Lab Routine Encounter for supervision of normal first in third trimester 02/20/2024 11:06 AM EDT HEPATITIS B SURFACE ANTIGEN Lab Routine Encounter for supervision of normal first in third trimester 02/20/2024 11:06 AM EDT HIV ANTIGEN & ANTIBODY SCREEN W/ CONFIRMATION Lab Routine Encounter for supervision of normal first in third trimester 02/20/2024 11:06 AM EDT HEPATITIS C ANTIBODY SCREEN WITH PROGRESSION TO HEPATITIS C RNA QUANTITATIVE Lab Routine Encounter for supervision of normal first in third trimester 02/20/2024 11:06 AM EDT ANEMIA CBC Lab Routine Encounter for supervision of normal first in third trimester 02/20/2024 11:06 AM EDT DIFFERENTIAL, AUTOMATED Lab Routine Encounter for supervision of normal first in third trimester 02/20/2024 11:06 AM EDT ANEMIA REFLEX CHEMISTRY HOLD Lab Routine Encounter for supervision of normal first in third trimester 02/20/2024 11:06 AM EDT SYPHILIS ANTIBODY SCREEN Lab Routine Encounter for supervision of normal first in third trimester 02/20/2024 11:06 AM EDT HEPATITIS C ANTIBODY Lab Routine Encounter for supervision of normal first in third trimester 02/20/2024 11:06 AM EDT HEPATITIS C RNA ADD ON Lab Routine Encounter for supervision of normal first in third trimester 02/20/2024 11:06 AM EDT Health Maintenance Due Date Last Done Comments Depression Screening 2010 HIV Screening 2013 HPV (Gardasil) Vaccine (1 - 3-dose series) 2013 Hepatitis C Screening 02/13/2016 DTaP,Tdap,and Td [...] supervision of normal first in third trimester Supervision of normal first documented in this encounter
--- OUTSIDE RECORDS SUMMARY | 2024-04-17 07:41 | External Medical Summary | Summary of Care ---
Author Name Unknown Organization [facility] Address [address] [facility] [place] [address] Phone [phone] Care Team Providers Care Director Of Clinical Education Name Role Phone Unavailable Primary Care Provider Unavailabl e Reason for Visit * Reason Comments Outpatient Testing Encounter Details Date Type Department Care Team (Late st Contact Info) Description 02/20/2024 10:30 AM EDT Laboratory Laboratory [address] [place] [phone] [place] [address] Encounter for supervision of normal first in [...] third trimester 02/13/2024 Overview: Transfer from [facility] at 31w. Labs not available for review, [...] 02/27/2024 9:45 AM EDT Office Visit Gynecology/Obstetrics [address] [place] [address] Nory Araya CRNP [address] [place] [address] Pending Results Name Type Priority Associated Diagnoses [...]
--- OUTSIDE RECORDS SUMMARY | 2024-04-17 07:41 | External Medical Summary ---
Author Name Unknown Address Unknown Organization [id number]:LABORATORY [facility] [place] - [facility] [address] [facility] [address] [place] [address] Laboratory Report Ordering Provider Test Date Status ANDREE NUNO 02/20/2024 11:06:19 Final Observation Date Value Abnormality Reference (Units ) Status HIV 1+2 Ab+HIV1 p24 Ag [Presence] in Serum or Plasma by Immunoassay 02/20/2024 11:06:19 Negative Negative Final Negative HIV-1/2 antigen and antibody screening tset results usually indicate the absence of HIV-1 and HIV-2 infection. However, such negative results do not rule-out acute HIV infection. If acute HIV-1 infection is highly suspected, it is recommended that a specimen be submitted for detection of HIV-1 RNA. Performing Location LABORATORY [facility] [place] - [address] [place] [address]
--- OUTSIDE RECORDS SUMMARY | 2024-04-17 07:41 | External Medical Summary | Summary of Care ---
Author Name Unknown Organization [facility] Address [address] [facility] [place] [address] Phone [phone] Care Team Providers Care Hotel Manager Name Role Phone Unavailable Primary Care Provider Unavailabl e Reason for Visit * Reason Comments Return Visit Encounter Details Date Type Department Care Team (Late st Contact Info) Description 02/27/2024 9:45 AM EDT Office Visit Gynecology/Obstetric s [address] [place] [id number] Nory Araya CRNP [address] [place] [address] Encounter for supervision of normal first in third trimester*; Adjustment disorder with mixed anxiety and depressed mood; Rh negative, antepartum Allergies Active Allergy Reactions Criticality Noted Date Comments Amoxicillin 01/26/2024 documented as of this encounter (statuses as of 02/27/2024) Medications Medication Sig Dispensed Refills Start Date End Date Status 28-0.8 MG Oral Tablet Take by mouth. Active Sertraline HCl 50 MG Oral Tablet (Zoloft) Take 1 Tablet by mouth in the morning. Active Hospital, Clinic, or Other Facility Administered Medication Ordered Dose Route Frequency Start Date End Date Status rho d immune globulin (Rhogam) inj 300 mcgIndications:Rh negative, antepartum 300 mcg IM ONCE 02/27/2024 02/27/2024 Disc ontinued Rho D Immune Globulin (Rhophylac) inj 300 mcgIndications:Rh negative, antepartum 300 mcg IM ONCE 02/27/2024 02/27/2024 Ende d documented as of this encounter (statuses as of 02/27/2024) Active Problems Problem Noted Date Diagnosed Date Rh negative status during 02/21/2024 Overview: O- bloodtype. NOB labs drawn at 32w. NEEDS RHOGAM Encounter for supervision of normal first in third trimester 02/13/2024 Overview: Transfer from [facility] at 31w. Labs not available for review, ordered 02/13/2024 Adjustment disorder with mixed anxiety and depre ssed mood 02/13/2024 Overview: On zoloft, feeling well Estimated Date of Delivery Comme nts Yes 04/16/2024 Based on Ultraso und documented as of this encounter (statuses as of 02/27/2024) Social History Tobacco Use Types Packs/Day Years [...] Sign Reading Time Taken Comments Blood Pressure 120/70 02/27/2024 9:38 AM EDT Pulse - - Temperature - - Respiratory Rate - - Oxygen Saturation - - Inhaled Oxygen Concentration - - Weight - - Height 154.9 cm (5' 1") 02/27/2024 9:38 AM EDT Body Mass Index - - documented in this encounter Progress Notes * Nory Araya CRNP - 02/27/2024 9:55 AM EDT 33w No concerns. Baby is active. No contractions, bleeding, LOF. Had NOB labs since last visit, negative bloodtype. Rhogam today. TDAP next visit. CHINTAN Kebede * Anita Jewell LPN - 02/27/2024 9:38 AM EDT 33w0d Needs rhogam Would like tdap at next visit documented in this encounter Nursing Notes * Anita Jewell LPN - 02/27/2024 10:22 AM EDT Patient here for rhogam injection. Patient doing well no complaints. Injection given IM as ordered. Patient tolerated well. Patient to follow up as directed. Patient instructed to call if any complications. Patient verbalized understanding of instructions given and her follow up appt for 2 weeks Injection site: Left thigh Medication Source: Dispensed stock medication documented in this encounter Plan of Treatment Upcoming Encounters Date Type Department Care Team (Late st Contact Info) Description 03/12/2024 8:15 AM EDT Office Visit Gynecology/Obstetrics [facility] Mustafa [address] [place] [address] Nory Araya CRNP [address] [place] [address] Health Maintenance Due Date Last Done Comments [...] with mixed anxiety and depressed mood Rh negative, antepartum Rhesus isoimmunization affecting management of mother, antepartum condition documented in this encounter Administered Medications Inactive Administered Medications - up to 3 most recent administrations Medication Order MAR Action Action Date Dose Rate Site Rho D Immune Globulin (Rhophylac) inj 300 mcg 300 mcg, Intramuscular, ONCE, On 02/27/24 at 1100, For 1 dose, Do not administer until type and screen has been collected! 1 MCG = 5 INTERNATIONAL UNITS Given 02/27/2024 10:22 AM EDT 300 mcg Thigh Left Lateral documented in this encounter
--- OUTSIDE RECORDS SUMMARY | 2024-04-17 07:41 | External Medical Summary | Summary of Care ---
Author Name Unknown Organization [facility] Address [address] [facility] [place] [address] Phone [phone] Care Team Providers Care Telehealth Nurse Name Role Phone Unavailable Primary Care Provider Unavailabl e Encounter Details Date Type Department Care Team (Late st Contact Info) Description 02/21/2024 Telephone Gynecology/Obstetrics [facility] Mustafa [address] [place] [address] Nory Araya CRNP [address] [place] [address] Allergies Active Allergy Reactions Criticality Noted Date Comments Amoxicillin 01/26/2024 documented as of this encounter (statuses as of 02/21/2024) Medications Medication Sig Dispensed Refills Start Date End Date Status 28-0.8 MG Oral Tablet Take by mouth. Active Sertraline HCl 50 MG Oral Tablet (Zoloft) Take 1 Tablet by mouth in the morning. Active documented as of this encounter (statuses as of 02/21/2024) Active Problems Problem Noted Date Diagnosed Date Rh negative status during 02/21/2024 Overview: O- bloodtype. NOB labs drawn at 32w. NEEDS RHOGAM Encounter for supervision of normal first in third trimester 02/13/2024 Overview: Transfer from [facility] at 31w. Labs not available for review, ordered 02/13/2024 Adjustment disorder with mixed anxiety and depre ssed mood 02/13/2024 Overview: On zoloft, feeling well Estimated Date of Delivery Comme nts Yes 04/16/2024 Based on Ultraso und documented as of this encounter (statuses as of 02/21/2024) Social History Tobacco Use Types Packs/Day Years [...] on file documented as of this encounter Miscellaneous Notes * Telephone Encounter - Rosanne Solorzano LPN - 02/21/2024 11:19 AM EDT Patient notified. Agreeable. * Telephone Encounter - Shiela Hart RN - 02/21/2024 8:38 AM EDT left message for patient to call office * Telephone Encounter - Nory Araya CRNP - 02/21/2024 8:04 AM EDT Pt was a transfer from [facility] at 31w. She had not had any labs drawn at that time. Please notify her tat her bloodtype is O- and she will need Rhogam. She passed her glucola. documented in this encounter Plan of Treatment Upcoming Encounters Date Type Department Care Team (Late st Contact Info) Description 02/27/2024 9:45 AM EDT Office Visit Gynecology/Obstetrics [address] [place] [address] Nory Araya CRNP [address] [place] [address] [place] [address] Health Maintenance Due Date Last Done Comments Depression Screening 2010 HPV (Gardasil) Vaccine (1 - 3-dose series) 2013 DTaP,Tdap,and Td Vaccines (1 - Tdap) 2017 Hepatitis B Vaccine (1 of 3 - 19+ 3-dose series) 2017 Pap Smear 2019 COVID-19 Vaccine (2022-2 4 season) 2023 Influenza Vaccine (FLU shot) (#1) 2024 HIV Screening Completed 02/20/2024 Hepatitis C Screening Completed 02/20/2024 , 02/20/2024, 02/20/2024 MENINGOCOCCAL (MENACTRA/MENVEO) Aged Out No longer eligible b ased on patient's age to complete this topic Pneumococcal Vaccine: Pediatrics (0 to 5 Years) and At-Risk Patients (6 to 64 Years) Aged Out No longer eligible b ased on patient's age to complete this topic documented as of this encounter Medical Devices Not on filedocumented as of this encounter
--- OUTSIDE RECORDS SUMMARY | 2024-04-17 07:41 | External Medical Summary ---
Author Name Unknown Address Unknown Organization [id number]:[facility] [place] [address] [place] [id number] Laboratory Report Ordering Provider Test Date Status ANDREE NUNO 02/20/2024 11:06:19 Final Observation Date Value Abnormality Reference (Units ) Status Hep C Ab 02/20/2024 11:06:19 Negative Negative Final Further HCV quantitative susana ting not performed per protocol. Performing Location [facility] - [address] [place] [id number]
--- OUTSIDE RECORDS SUMMARY | 2024-04-17 07:41 | External Medical Summary ---
Author Name Unknown Address Unknown Organization K01:[facility] [place] - [address] [place] [id number] Laboratory Report Ordering Provider Test Date Status ANDREE NUNO 02/20/2024 11:06:19 Final Observation Date Value Abnormality Reference (Units ) Status Glucose [Moles/volume] in Serum or Plasma --1 hour post 50 g glucose PO 02/20/2024 11:06:19 107 70-129 (mg/dL) Final Performing Location [facility] - [address] [place] [id number]
[2024-04-17] MEDS ORDERED: ACETAMINOPHEN 325 MG TAB PO PRN ×2 (08:13→23:27)
[2024-04-17] MEDS ORDERED: LIDOCAINE 1% LOCAL 20 ML VIAL INFIL PRN (08:13)
[2024-04-17] MEDS ORDERED: OXYTOCIN 30 UNITS/NSS 30 UNITS/500 ML BAG IV PRN ×2 (08:13→23:27)
[2024-04-17] MEDS ORDERED: CALCIUM CARBONATE 500 MG CHEWABLE TAB PO PRN (08:13)
[2024-04-17 09:17] LABS: Hemoglobin 12.9 g/dl (12.0-16.0); Mean Corpuscular Hemoglobin 30.2 pg (25.0-34.0); Mean Corpuscular Hgb Conc 33.1 g/dL (32.0-36.0); Mean Corpuscular Volume 91.3 fL (80.0-100.0); Platelet Count 222 K/uL (130-400); RDW Coefficient of Variation 14.1 % (11.5-14.5); RDW Standard Deviation 46.9 fL (36.4-46.3); Red Blood Count 4.27 M/uL (4.20-5.40); White Blood Count 12.52 K/ul (4.8-10.8)
[2024-04-17] MEDS: DINOPROSTONE 10 MG INSERT PV ONE (09:45)
[2024-04-17] MEDS: miSOPROStoL 50 MCG TAB PO STA (09:48)
[2024-04-17] MEDS: LACTATED RINGER'S 1,000 ML IV PRN (16:10)
--- NOTE | 2024-04-17 16:11 | Labor Progress Brief Note ---
Date of Service April 17, 2024 Assessment & Plan Admission and Anticipated Discharge Date Admission Date: April 17, 2024 Physical Exam Genitourinary: Manual OB Exam: + cervical dilation 4 cm, + cervical effacement 70%, + station -2 and + amniotic fluid meconium OB Exam Monitor Tracing: + external FHT monitor used, + external uterine monitor used, + category I and + normal FHT variability AROM with Amni-hook clear fluid meconium stained fluid Results & Data Vital Signs (Past 12 Hours) Vital Signs Temp Pulse Resp BP 04/17/24 15:03 88 117/65 04/17/24 15:01 16 04/17/24 15:01 36.6 C 16 04/17/24 10:57 37.0 C 80 20 119/68 04/17/24 08:02 96 H 119/76 04/17/24 07:55 37.5 C 20
[2024-04-17] MEDS: OXYTOCIN 30 UNITS/NSS 30 UNITS/500 ML BAG IV PRN (16:21)
[2024-04-17] MEDS ORDERED: SODIUM CHLORIDE 0.9% PF INJ 10 ML VIAL ONE (16:59)
[2024-04-17] MEDS: fentaNYL citrate PF 100 MCG/2 ML VIAL ONE (17:00)
[2024-04-17] MEDS: fentANYL 2 MCG/ML BUPIVacaine 0.125%-NSS 100ML BAG ONE (17:46)
[2024-04-17] MEDS: LIDOCAINE 2%/EPINEPHRINE 1:200,000 20 ML PF ONE (17:51)
[2024-04-17] MEDS: BUPIVACAINE 0.25% PF 30 ML VIAL ONE (17:51)
--- NOTE | 2024-04-17 17:59 | Anesthesiology Consultation ---
Date of Service April 17, 2024 Assessment & Plan Chart Review Chart Review: Acceptable Risk for Labor Epidural Consults Requested none History Height/Weight Height: 5 ft 1 in Weight: 89.358 kg Allergies Allergy/AdvReac Type Severity Reaction Status Date / Time amoxicillin Allergy Mild Hives Verified 04/17/24 07:53 Medications Home Medications Medication Instructions Recorded Confirmed Last Taken vits no.124-ferrous fum 1 tab PO DAILY 04/17/24 04/17/24 04/17/24 27 mg iron-folic acid 800 mcg tablet ( Vitamin) Active Medications Generic Name Dose Route Start Last Admin Trade Name Freq PRN Reason Stop Dose Admin Lactated Ringer's 1,000 mls @ 150 mls/hr 04/17/24 08:13 04/17/24 16:10 Lr IV 04/19/24 08:12 150 mls/hr .[id number] PRN Administration L&D Protocol Protocol Oxytocin 30 units in 500 mls @ 1 mls/hr 04/17/24 16:11 04/17/24 16:21 Pitocin 30 Units/Nss IV 04/19/24 16:10 0.06 units/hr .Q24H PRN 1 mls/hr Labor Induction/Augmentation Administration Protocol 0.06 UNITS/HR Past Medical History Medical History (Updated 04/17/24 @ 07:50 by Janis Cabrera, DAHIANA) Asthma Albuterol Inhaler as needed Depression Stopped taking Zoloft 1 week ago Anxiety Past Family History Family History (Updated 04/17/24 @ 07:50 by Janis Cabrera RN) Other No known health problems Past Surgical History Surgical History (Updated 04/17/24 @ 07:50 by Janis Cabrera RN) Hx of tonsillectomy Social History Smoking Status: Never smoker Hx Alcohol Use: No Hx Substance Use: No Physical Exam Vital Signs Last Vital Signs Temp 37.2 C 04/17/24 16:20 Pulse 92 H 04/17/24 17:55 Resp 16 04/17/24 16:20 BP 119/64 04/17/24 17:52 Pulse Ox 100 04/17/24 17:55 Testing Laboratory Results 04/17/24 08:41 Blood Type O Negative 04/17/24 09:30 Antibody Screen NEGATIVE 04/17/24 09:30
[2024-04-17] MEDS ORDERED: NALOXONE HCL 1 MG in SODIUM CHLORIDE 0.9% 1,000 ML IV PRN (18:00)
[2024-04-17] MEDS ORDERED: NALBUPHINE HCL INJ 10 MG/ML AMP IV PRN (18:00)
[2024-04-17] MEDS ORDERED: SODIUM CHLORIDE 0.9% PF INJ 10 ML VIAL EPI PRN (18:00)
[2024-04-17] MEDS ORDERED: fentANYL 2 MCG/ML BUPIVacaine 0.125%-NSS 100ML BAG EPI PRN (18:00)
[2024-04-17] MEDS ORDERED: fentaNYL citrate PF 100 MCG/2 ML VIAL EPI PRN (18:00)
[2024-04-17] MEDS ORDERED: BUPIVACAINE 0.25% PF 30 ML VIAL EPI STA (18:00)
[2024-04-17] MEDS ORDERED: NALOXONE HCL 0.4 MG/1 ML VIAL/CARP IV PRN (18:00)
[2024-04-17] MEDS ORDERED: LIDOCAINE 2%/EPINEPHRINE 1:200,000 20 ML PF EPI STA (18:00)
[2024-04-17] MEDS ORDERED: ROPIVACAINE 0.5% PF 5 MG/ML 20 ML VIAL EPI PRN (18:00)
[2024-04-17] MEDS ORDERED: diphenhydrAMINE 50 MG/ML VIAL IV PRN (18:00)
[2024-04-17] MEDS ORDERED: fentaNYL citrate PF 100 MCG/2 ML VIAL EPI STA (18:00)
[2024-04-17] MEDS ORDERED: ePHEDrine sulfate 50 MG/ML AMP IV PRN (18:00)
[2024-04-17] MEDS ORDERED: BUPIVACAINE 0.25% PF 30 ML VIAL EPI PRN (18:00)
[2024-04-17] MEDS ORDERED: LIDOCAINE 2% MPF LOCAL 5 ML VIAL EPI PRN (18:00)
--- NOTE | 2024-04-17 19:13 | Labor Progress Brief Note ---
Date of Service April 17, 2024 Assessment & Plan Admission and Anticipated Discharge Date Admission Date: April 17, 2024 Physical Exam Genitourinary: Manual OB Exam: + cervical dilation 6 cm, + cervical effacement 80% and + station -1 OB Exam Monitor Tracing: + external FHT monitor used, + external uterine monitor used, + category I and + normal FHT variability Results & Data Vital Signs (Past 12 Hours) Vital Signs Temp Pulse Resp BP Pulse Ox 04/17/24 19:10 96 H 100 04/17/24 19:09 104 H 121/52 L 04/17/24 19:05 80 100 04/17/24 19:00 94 H 100 04/17/24 18:55 84 99 04/17/24 18:52 90 108/63 04/17/24 18:50 81 100 04/17/24 18:45 78 100 04/17/24 18:40 86 100 04/17/24 18:38 82 110/60 04/17/24 18:35 106 H 100 04/17/24 18:30 97 H 100 04/17/24 18:28 92 H 118/78 04/17/24 18:25 86 100 04/17/24 18:20 89 100 04/17/24 18:15 83 100 04/17/24 18:10 89 99 04/17/24 18:08 84 132/67 04/17/24 18:05 90 100 04/17/24 18:00 91 H 100 04/17/24 17:55 92 H 100 04/17/24 17:52 93 H 119/64 04/17/24 17:50 105 H 04/17/24 17:50 97 H 115/62 100 04/17/24 17:48 100 H 116/72 04/17/24 17:46 98 H 125/76 04/17/24 17:45 99 H 99 04/17/24 17:42 96 H 132/73 04/17/24 17:40 90 134/74 100 04/17/24 17:39 100 H 129/79 04/17/24 17:38 96 H 136/87 04/17/24 17:36 105 H 144/87 H 04/17/24 17:35 104 H 100 04/17/24 17:34 110 H 151/99 H 04/17/24 17:32 113 H 138/97 04/17/24 17:31 109 H 142/101 H 04/17/24 17:30 109 H 100 04/17/24 17:25 110 H 100 04/17/24 17:20 89 04/17/24 17:20 101 H 131/75 100 04/17/24 17:17 91 H 138/79 04/17/24 17:03 87 132/78 04/17/24 16:48 83 124/71 04/17/24 16:20 16 04/17/24 16:20 37.2 C 16 04/17/24 15:03 88 117/65 04/17/24 15:01 16 04/17/24 15:01 36.6 C 16 04/17/24 10:57 37.0 C 80 20 119/68 04/17/24 08:02 96 H 119/76 04/17/24 07:55 37.5 C 20
[2024-04-17] MEDS: ePHEDrine sulfate 50 MG/ML AMP ONE (21:13)
[2024-04-17] MEDS: SODIUM CHLORIDE 0.9% PF INJ 10 ML VIAL EPI STA (21:14)
[2024-04-17] MEDS ORDERED: ONDANSETRON INJ 2 MG/ML 2 ML VIAL ONE (21:32)
[2024-04-17] MEDS: ONDANSETRON INJ 2 MG/ML 2 ML VIAL IV PRN (21:35)
--- NOTE | 2024-04-17 23:26 | Delivery Summary ---
Vaginal Delivery Summary Date of Service April 17, 2024 Vaginal Delivery Summary live male THANG over intact perineum with nuchal cord x1 reduced at delivery. Apgars and weight pending. Placenta delivered spontaneously and intact. Small introital tear not bleeding and not repaired. Final sponge and instrument count are correct. QBL 302 ml. Mother stable and baby to nursery.
[2024-04-17] MEDS ORDERED: HYDROCORTISONE ACETATE 25 MG SUPP PR PRN (23:27)
[2024-04-17] MEDS ORDERED: DIPHTHER/TETAN/PERTUS Vaccine (Tdap, Adol/Adult) 0.5mL IM ONE (23:27)
--- NOTE | 2024-04-17 23:38 | Anesthesia Procedure Note ---
Date of Service April 17, 2024 Anesthesia Post Epidural Note Vital Signs Vital Signs: Temp Pulse Resp BP Pulse Ox 37.0 C 37 L 18 110/68 98 04/17/24 19:02 04/17/24 23:28 04/17/24 23:28 04/17/24 23:28 04/17/24 23:05 Notes Mental Status: alert / awake / arousable Nausea / Vomiting: adequately controlled Pain: adequately controlled Airway Patency, RR, SpO2: stable & adequate BP & HR: stable & adequate Hydration State: stable & adequate Neuraxial Anesthesia: was administered and sensory block is resolving Anesthetic Complications: no major complications apparent and Pt Satisfied with anesthetic care Epidural: Removed without complications and With tip intact
[2024-04-18] MEDS: BENZOCAINE 20% SPRY 85 APPLN/85 GM CAN EXT PRN (01:36)
[2024-04-18] MEDS: IBUPROFEN 600 MG TAB PO PRN (05:04)
[2024-04-18 06:35] LABS: Hematocrit (blood only) 29.6 % (37.0-47.0); Hemoglobin 9.9 g/dl (12.0-16.0); Mean Corpuscular Hemoglobin 30.4 pg (25.0-34.0); Mean Corpuscular Hgb Conc 33.4 g/dL (32.0-36.0); Mean Corpuscular Volume 90.8 fL (80.0-100.0); Mean Platelet Volume 12.2 fL (9.4-12.4); Platelet Count 183 K/uL (130-400); RDW Coefficient of Variation 14.1 % (11.5-14.5); RDW Standard Deviation 47.1 fL (36.4-46.3); Red Blood Count 3.26 M/uL (4.20-5.40); White Blood Count 15.08 K/ul (4.8-10.8)
[2024-04-18] MEDS: PRENATAL VITAMIN 1 TAB PO SCH (08:04)
[2024-04-18] MEDS: DOCUSATE SODIUM 100 MG CAP PO SCH (08:04)
[2024-04-18] MEDS: FERROUS SULFATE 325 MG TAB PO SCH (08:04)
[2024-04-18] MEDS ORDERED: PRENATAL VITAMIN 1 TAB PO SCH (09:00)
--- NOTE | 2024-04-18 13:13 | Obstetrical Progress Note ---
Date of Service April 18, 2024 Assessment & Plan Admission and Anticipated Discharge Date Admission Date: April 17, 2024 Subjective Patient is seen and examined. She feels well, no complaints. Ambulating without dizziness Voiding without difficulty Tolerating regular diet with out N&V Bleeding is minimal No fever/ chills/ CP/ SOB/ N&V/ Leg pain Bottle feeding without problems Vital Signs Temp Pulse Resp BP Pulse Ox O2 Del Method 04/18/24 12:00 36.9 C 76 18 110/71 Room Air 04/18/24 11:00 36.8 C 04/18/24 08:00 Room Air 04/18/24 08:00 36.8 C 81 16 107/71 04/18/24 05:00 36.8 C 86 18 109/74 04/18/24 02:00 37.3 C 105 H 18 115/76 97 Room Air Lab Results 04/17/24 04/17/24 04/17/24 Range/Units 08:41 09:26 09:30 WBC 12.52 H (4.8-10.8) K/ul RBC 4.27 (4.20-5.40) M/uL Hgb 12.9 (12.0-16.0) g/dl Hct 39.0 (37.0-47.0) % MCV 91.3 (80.0-100.0) fL MCH 30.2 (25.0-34.0) pg MCHC 33.1 (32.0-36.0) g/dL RDW Std Deviation 46.9 H (36.4-46.3) fL RDW Coeff of Preston 14.1 (11.5-14.5) % Plt Count 222 (130-400) K/uL MPV 12.0 (9.4-12.4) fL Treponema pallidum Ab Cancelled Negative Blood Type Cancelled O Negative Antibody Screen Cancelled NEGATIVE 04/18/24 Range/Units 05:52 WBC 15.08 H (4.8-10.8) K/ul RBC 3.26 L (4.20-5.40) M/uL Hgb 9.9 L D (12.0-16.0) g/dl Hct 29.6 L (37.0-47.0) % MCV 90.8 (80.0-100.0) fL MCH 30.4 (25.0-34.0) pg MCHC 33.4 (32.0-36.0) g/dL RDW Std Deviation 47.1 H (36.4-46.3) fL RDW Coeff of Preston 14.1 (11.5-14.5) % Plt Count 183 (130-400) K/uL MPV 12.2 (9.4-12.4) fL Treponema pallidum Ab Blood Type Antibody Screen PE: General: Alert, orientedx3, NAD Abd: soft, NT, fundus firm, below Umbilicus Perineum intact, Lochia rubra minimal Ext; NT, no edema AP: 24 yo s/p , ppd# 1 VSS Afebrile doing well Continue routine care All questions were answered D/C home tomorrow Results & Data Vital Signs (Past 12 Hours) Vital Signs Temp Pulse Pulse Resp BP BP Pulse Ox 04/18/24 12:00 36.9 C 76 18 110/71 04/18/24 11:00 36.8 C 04/18/24 08:00 04/18/24 08:00 36.8 C 81 16 107/71 04/18/24 05:00 36.8 C 86 18 109/74 04/18/24 02:00 37.3 C 105 H 18 115/76 97 04/18/24 01:13 37.2 C 100 H 18 118/62 O2 Del Method 04/18/24 12:00 Room Air 04/18/24 11:00 04/18/24 08:00 Room Air 04/18/24 08:00 04/18/24 05:00 04/18/24 02:00 Room Air 04/18/24 01:13
[2024-04-18] MEDS ORDERED: bisacodyL 5 MG TABEC PO SCH (20:00)
[2024-04-19] MEDS ORDERED: bisacodyL 10 MG SUPP PR PRN
[2024-04-19 06:55] LABS: Basophils # (auto) 0.05 K/uL (0.00-0.20); Basophils % (auto) 0.4 %; Eosinophils # (auto) 0.12 K/uL (0.00-0.50); Eosinophils % (auto) 0.9 %; Hematocrit (blood only) 30.6 % (37.0-47.0); Hemoglobin 9.9 g/dl (12.0-16.0); Immature Granulocytes # (auto) 0.06 K/uL (0.01-0.20); Immature Granulocytes % (auto) 0.5 %; Lymphocytes # (auto) 1.39 K/uL (1.20-3.40); Lymphocytes % (auto) 10.7 %; Mean Corpuscular Hemoglobin 30.1 pg (25.0-34.0); Mean Corpuscular Hgb Conc 32.4 g/dL (32.0-36.0); Mean Platelet Volume 11.9 fL (9.4-12.4); Monocytes # (auto) 1.01 K/uL (0.11-0.59); Monocytes % (auto) 7.8 %; Neutrophils # (auto) 10.36 K/uL (1.40-6.50); Neutrophils % (auto) 79.7 %; Platelet Count 175 K/uL (130-400); RDW Coefficient of Variation 14.2 % (11.5-14.5); RDW Standard Deviation 47.9 fL (36.4-46.3); Red Blood Count 3.29 M/uL (4.20-5.40); White Blood Count 12.99 K/ul (4.8-10.8)
[2024-04-19 07:26] VITALS: BP 103/70; PULSE 87; RESP 18; TEMP 98.4; O2SAT 97
--- NOTE | 2024-04-19 10:36 | Obstetrical Progress Note ---
Date of Service April 19, 2024 Subjective Ambulation: ambulating normally Voiding: no voiding problems Passing Gas:: Yes Diet Tolerance:: regular diet Lochia:: Small Feeding Type:: breast feeding doing well Physical Exam Constitutional WD/WN, vitals as above Gastrointestinal (Abdomen) Inspection/Auscultation: abdomen normal to inspection abdomen soft and non-tender. fundus firm below U. Musculoskeletal Extremities: extremities normal to inspection Skin no rashes, warm and dry Neurologic patellar DTR's 2+ bilat, sensation intact Psychiatric A+Ox3, euthymic affect Results & Data Vital Signs (Past 12 Hours) Vital Signs Temp Pulse Resp BP Pulse Ox O2 Del Method 04/19/24 07:15 Room Air 04/19/24 07:15 36.9 C 87 18 103/70 97 Room Air 04/18/24 23:14 36.8 C 20 124/76 Laboratory Results 04/17/24 04/17/24 04/17/24 08:41 09:26 09:30 WBC 12.52 H RBC 4.27 Hgb 12.9 Hct 39.0 MCV 91.3 MCH 30.2 MCHC 33.1 RDW Std Deviation 46.9 H RDW Coeff of Preston 14.1 Plt Count 222 MPV 12.0 Immature Gran % (Auto) Neut % (Auto) Lymph % (Auto) Boyd % (Auto) Eos % (Auto) Baso % (Auto) Neut # (Auto) Lymph # (Auto) Boyd # (Auto) Eos # (Auto) Baso # (Auto) Immature Gran # (Auto) Treponema pallidum Ab Cancelled Negative Blood Type Cancelled O Negative Antibody Screen Cancelled NEGATIVE 04/18/24 04/19/24 05:52 06:21 WBC 15.08 H 12.99 H RBC 3.26 L 3.29 L Hgb 9.9 L D 9.9 L Hct 29.6 L 30.6 L MCV 90.8 93.0 MCH 30.4 30.1 MCHC 33.4 32.4 RDW Std Deviation 47.1 H 47.9 H RDW Coeff of Preston 14.1 14.2 Plt Count 183 175 MPV 12.2 11.9 Immature Gran % (Auto) 0.5 Neut % (Auto) 79.7 Lymph % (Auto) 10.7 Boyd % (Auto) 7.8 Eos % (Auto) 0.9 Baso % (Auto) 0.4 Neut # (Auto) 10.36 H Lymph # (Auto) 1.39 Boyd # (Auto) 1.01 H Eos # (Auto) 0.12 Baso # (Auto) 0.05 Immature Gran # (Auto) 0.06 Treponema pallidum Ab Blood Type Antibody Screen
== END 2024-04-19 13:30 | disposition home or self-care (01) | DRG 807 ==
LOC: 4S1 07:35 → 4E2 04-18 01:47